=== PATIENT | male | born 1960 | race Hispanic/Latino ===

== ENCOUNTER → 2017-12-24 | Day surgery (SDC) | payer BC ==
[~2017-12-24] MED LIST: BIOTIN2500 MCG; CHLORDIAZEPOXIDE PO; CIPRO500 MG PO; DICYCLOMINE HCL 20 MG/2 ML VIAL IM SCH; FENTANYL CITRATE/PF 100MCG/2 ML INJ ONE; FIBERCON625 MG PO; GLUCOSAMINE1000 MG; LIDOCAINE HCL 2% LOCAL INJ 5 ML SDV VIAL INJ ONE; MIDAZOLAM HCL 2 MG/2 ML VIAL ONE; MULTIVITAMINS1 EAC8 PO; MYRBETRIQ50 MG; PRILOSEC10 M1; PROPOFOL IV EMULSION 10 MG/ML 20 ML VIAL IV ONE; TUMERIC; [UNRECOGNIZED DRUG - OTHER]; [UNRECOGNIZED DRUG - OTHER]
[2017-12-24 10:15] VITALS: BP 132/90
--- NOTE | 2017-12-24 12:03 | Operative Report ---
DATE OF PROCEDURE: December 24, 2017 GASTROINTESTINAL PROCEDURE NOTE PROCEDURE PERFORMED: Colonoscopy. PREOPERATIVE DIAGNOSIS: History of colon polyps. POSTOPERATIVE DIAGNOSES 1. History of colon polyps. 2. Colon polyps number 8 found and removed. 3. Diverticulosis. 4. Internal hemorrhoids. PREOP MEDICATIONS: Consisted of TIVA. PROCEDURE: Using the [employer] video colonoscope, this was inserted into the patient's rectum and advanced without difficulty to the level of the cecum. The colon was studied from that level back down to the rectum. There was a 4-mm-sized polyp in the ascending colon, which was removed with the hot biopsy forceps. There was another 4-mm-sized polyp in the descending colon, which was removed with the hot biopsy forceps. The sigmoid colon contained 4 polyps approximately 3 to 5 mm in size, and these were removed with the hot biopsy forceps. There was a 4-mm-sized polyp in the rectum, which was removed with the hot biopsy forceps. Scattered diverticula were seen in the sigmoid and colon but no evidence of a diverticulitis. Internal hemorrhoids were present. The colonoscope was withdrawn from the patient's rectum, and the procedure was ended. In conclusion, we had findings of colon polyps as mentioned above, diverticulosis and internal hemorrhoids. Job#: [id number] EV
== END | disposition home or self-care (01) ==
LOC: OR 07:04
PROVIDERS: ATTEND Internal Medicine Gastroenterology
DX: Z09 Encounter for follow-up examination after completed treatment for conditions other than malignant neoplasm (principal); K63.5 Polyp of colon; K62.1 Rectal polyp; K57.30 Diverticulosis of large intestine without perforation or abscess without bleeding; K58.9 Irritable bowel syndrome, unspecified; K64.8 Other hemorrhoids; K21.9 Gastro-esophageal reflux disease without esophagitis; G47.33 Obstructive sleep apnea (adult) (pediatric); E78.5 Hyperlipidemia, unspecified; E66.9 Obesity, unspecified; F17.210 Nicotine dependence, cigarettes, uncomplicated; Z01.810 Encounter for preprocedural cardiovascular examination; Z68.34 Body mass index [BMI] 34.0-34.9, adult; Z80.0 Family history of malignant neoplasm of digestive organs
CPT/HCPCS: 45384; 88305; 93005; J0500; J2001; J2250; J2704

== ENCOUNTER 2017-12-26 18:03 | Inpatient (IN) | payer BC ==
[~2017-12-26] VITALS: Ht 180.3 cm; Wt 103.7 kg
[~2017-12-26 18:03] MED LIST changes: -CIPRO500 MG PO; -DICYCLOMINE HCL 20 MG/2 ML VIAL IM SCH; -FENTANYL CITRATE/PF 100MCG/2 ML INJ ONE; -LIDOCAINE HCL 2% LOCAL INJ 5 ML SDV VIAL INJ ONE; -MIDAZOLAM HCL 2 MG/2 ML VIAL ONE; -PROPOFOL IV EMULSION 10 MG/ML 20 ML VIAL IV ONE
[2017-12-26] MEDS ORDERED: SODIUM CHLORIDE 0.9% 1000ML 1,000 ML IV STA (18:28)
[2017-12-26] MEDS ORDERED: DIATRIZOATE MEGL/DIATRIZOA SOD 30 ML BTL PO ONE (18:53)
[2017-12-26 19:08] LABS: BASOPHILS % 0.3 % (0.0-1.0); EOSINOPHILS # (AUTO) 0.3 (0.0-0.4); EOSINOPHILS % 2.4 % (0.0-6.0); HEMATOCRIT 46.4 % (38.2-49.6); HEMOGLOBIN 15.9 g/dL (14.0-18.0); LYMPHOCYTES # (AUTO) 2.3 (1.0-3.2); LYMPHOCYTES % 17.7 % (18.0-39.1); MEAN CORPUSCULAR HEMOGLOBIN 30.6 pg (28-32); MEAN CORPUSCULAR HGB CONC 34.3 g/dL (31-35); MEAN CORPUSCULAR VOLUME 89.4 fL (81-99); MONOCYTES # (AUTO) 1.6 (0.2-0.8); MONOCYTES % 12.1 % (4.4-11.3); NEUTROPHILS # (AUTO) 8.6 (2.1-6.9); NEUTROPHILS % 67.3 % (38.7-80.0); PLATELET COUNT 307 x10e3/uL (140-360); RED BLOOD COUNT 5.19 x10e6/uL (4.3-5.7); RED CELL DISTRIBUTION WIDTH 12.4 % (11.7-14.4)
[2017-12-26] MEDS ORDERED: ACETAMINOPHEN 1000 MG/100 ML IV ONE (19:15)
[2017-12-26] MEDS ORDERED: MORPHINE SULFATE INJ 4 MG/ML INJ IV ONE (19:15)
[2017-12-26] MEDS ORDERED: ONDANSETRON HCL INJ 2 MG/ML VIAL IV ONE (19:15)
[2017-12-26] MEDS ORDERED: PANTOPRAZOLE 40 MG 10ML VIAL IV ONE (19:30)
[2017-12-26 19:31] LABS: ALANINE AMINOTRANSFERASE 52 IU/L (0-55); ALBUMIN 4.1 g/dL (3.5-5.0); ALKALINE PHOSPHATASE 103 IU/L (40-150); ANION GAP 15.7 mmol/L (8-16); BLOOD UREA NITROGEN 11 mg/dL (7-26); BUN/CREATININE RATIO 9 (6-25); CALCIUM 9.8 mg/dL (8.4-10.2); CARBON DIOXIDE 29 mmol/L (22-29); CHLORIDE 96 mmol/L (98-107); CREATINE KINASE 89 IU/L (30-200); CREATININE, SERUM 1.19 mg/dL (0.72-1.25); EST GLOMERULAR FILTRATION RATE > 60 ML/MIN (60-); GLUCOSE 127 mg/dL (74-118); LIPASE 23 U/L (8-78); POTASSIUM 3.7 mmol/L (3.5-5.1); SODIUM 137 mmol/L (136-145)
--- NOTE | 2017-12-26 19:38 | Diagnostic Imaging Report ---
EXAM: ABDOMEN ACUTE SERIES W/PA CXR, DATE: 12/26/2017 6:30 PM INDICATION: Status post colonoscopy. Distended hypertympanic. COMPARISON: None FINDINGS: LINES/TUBES: None BOWEL PATTERN: Multiple distended loops of small bowel and colon. Small bowel measures up to approximately 6 cm in diameter. No free air under the hemidiaphragm on upright view. SOFT TISSUES: No abnormal calcifications. No mass effect. LUNG BASES: Grossly clear. BONES: No acute findings. IMPRESSION: Multiple distended loops of small and large bowel. Findings could be related to insufflation during colonoscopy with incompetent ileocecal valve if colonoscopy was performed recently. Ileus or developing small bowel obstruction are other considerations. Findings can be reevaluated at the time of reported pending CT. Signed by: DR. Beto Harris MD on 12/26/2017 7:35 PM
[2017-12-26 19:40] LABS: CLARITY,URINE CLEAR (CLEAR); COLOR,URINE YELLOW (YELLOW)
[2017-12-26 19:41] LABS: BILIRUBIN,URINE NEGATIVE (NEGATIVE); KETONES,URINE NEGATIVE (NEGATIVE); LEUKOCYTE ESTERASE ,URINE NEGATIVE (NEGATIVE); NITRITE,URINE NEGATIVE (NEGATIVE); PROTEIN,URINE DIPSTICK NEGATIVE (NEGATIVE); URINE UROBILINOGEN 0.2 mg/dL (0.2 - 1)
[2017-12-26 19:52] LABS: BACTERIA,URINE FEW /HPF; EPITHELIAL CELLS,URINE RARE /LPF; RBC,URINE 0-5 /HPF (0-5); WBC,URINE (MAN) 0-5 /HPF (0-5)
[2017-12-26] MEDS ORDERED: METRONIDAZOLE 500MG/NS 100ML 100 ML IV STA (20:34)
[2017-12-26] MEDS ORDERED: PIPER-TAZ 3.375 GM 50 ML IV STA (20:34)
[2017-12-26] MEDS ORDERED: SODIUM CHLORIDE 0.9% 50ML 50 ML ONE (20:51)
[2017-12-26] MEDS ORDERED: IOPAMIDOL 370 MG/ML 200 ML INFUS..BTL INJ ONE (20:51)
--- NOTE | 2017-12-26 21:15 | Diagnostic Imaging Report ---
EXAM: CT Abdomen and Pelvis WITH contrast INDICATION: Rule out small bowel obstruction ^r/o sbo ^[id number] ^2029 COMPARISON: None. TECHNIQUE: Abdomen and pelvis were scanned utilizing a multidetector helical scanner from the lung base to the pubic symphysis after administration of IV contrast. Coronal and sagittal reformations were obtained. Routine protocol was performed. Scan was performed when during portal venous phase. IV CONTRAST: 100 mL of Isovue-370 ORAL CONTRAST: Gastroview COMPLICATIONS: None RADIATION DOSE: Total DLP: 759.6 mGy*cm Estimated effective dose: (DLP x 0.015 x size factor) mSv CTDIvol has been reviewed. It is below the limits set by the Radiation Protocol Committee (RPC). Dose modulation, iterative reconstruction, and/or weight based adjustment of the mA/kV was utilized to reduce the radiation dose to as low as reasonably achievable. FINDINGS: LINES and TUBES: None. LOWER THORAX: Unremarkable HEPATOBILIARY: Hyperattenuating 3.1 cm cm lesion in segment (series 2 image 30). Diffuse hypoattenuation of the liver suggestive of steatosis. No biliary ductal dilation. GALLBLADDER: Cholecystectomy. SPLEEN: No splenomegaly. PANCREAS: No focal masses or ductal dilatation. ADRENALS: No adrenal nodules KIDNEYS/URETERS: Kidneys enhance symmetrically. No hydronephrosis. Right renal 1.3 cm cyst. No stones. GI TRACT: Multiple distended loops of small bowel with relatively collapsed distal small bowel without identifiable transition point. No pneumatosis or bowel hypoenhancement. Gas is present within the colon. Appendix is not clearly identified. There is however no fat stranding or adenopathy in the right lower quadrant to suggest appendicitis. PELVIC ORGANS/BLADDER: Unremarkable. LYMPH NODES: No lymphadenopathy. VESSELS: Unremarkable. PERITONEUM / RETROPERITONEUM: Small amount of free fluid in the pelvis. No free air. BONES: There are degenerative changes in the lumbar spine. SOFT TISSUES: Unremarkable. IMPRESSION: 1. Findings suggestive of partial small bowel obstruction with dilated proximal and mid small bowel loops with collapsed distal bowel loops. No transition point identified. No findings of bowel ischemia, pneumatosis, or free air. 2. Indeterminate right hepatic 3.1 cm lesion. Recommend further evaluation with MRI without and with contrast for further evaluation, preferably an outpatient basis when patient is clinically optimized and minimize motion. Signed by: DR. Beto Harris MD on 12/26/2017 9:12 PM
[2017-12-26] MEDS ORDERED: LIDOCAINE VISC 2% SOLN 15 ML UDC ONE (21:29)
[2017-12-26] MEDS ORDERED: BENZOCAINE/TETRACAINE/BUTAMBEN AERO SPRAY 56 GM CAN ONE (21:29)
[2017-12-26] MEDS ORDERED: BENZOCAINE/TETRACAINE/BUTAMBEN AERO SPRAY 56 GM CAN TOP ONE (21:30)
[2017-12-26] MEDS ORDERED: ONDANSETRON HCL INJ 2 MG/ML VIAL IV PRN (21:45)
[2017-12-26] MEDS ORDERED: HYDROMORPHONE 1MG/1ML INJ IV PRN (21:45)
--- OUTSIDE RECORDS SUMMARY | 2017-12-26 21:54 | XMS REPORT ---
Author [facility] Address Unknown Phone Unavailable Care Team Providers Care Fire Official Name Role Phone Logan MILLIGAN Unavailable Unavailable Problems This patient has no known problems. Allergies, Adverse Reactions, Alerts This patient has no known allergies or adverse reactions. Medications This patient has no known medications. 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 TECHNIQUE: Abdomen and pelvis were scanned utilizing a multidetector helical scanner from the lung base to the pubic symphysis after administration of IV contrast. Coronal and sagittal reformations were obtained. Routine protocol was performed. Scan was performed when during portal venous phase. IV CONTRAST: 100 mL of Isovue-370 ORAL CONTRAST: Gastroview COMPLICATIONS: None RADIATION DOSE: Total DLP: 759.6 mGy*cm Estimated effective dose: (DLP x 0.015 x size factor) mSv CTDIvol has been reviewed. It is below the limits set by the Radiation Protocol Committee (RPC). Dose modulation, iterative reconstruction, and/or weight based adjustment of the mA/kV was utilized to reduce the radiation dose to as low as reasonably achievable. FINDINGS: LINES and TUBES: None. LOWER THORAX: Unremarkable HEPATOBILIARY: Hyperattenuating 3.1 cm cm lesion in segment (series 2 image 30). Diffuse hypoattenuation of the liver suggestive of steatosis. No biliary ductal dilation. GALLBLADDER: Cholecystectomy. SPLEEN: No splenomegaly. PANCREAS: No focal masses or ductal dilatation. ADRENALS: No adrenal nodules KIDNEYS/URETERS: Kidneys enhance symmetrically. No hydronephrosis. Right renal 1.3 cm cyst. No stones. GI TRACT: Multiple distended loops of small bowel with relatively collapsed distal small bowel without identifiable transition point. No pneumatosis or bowel hypoenhancement . Gas is present within the colon. Appendix is not clearly identified. There is however no fat stranding or adenopathy in the right lower quadrant to suggest appendicitis. PELVIC ORGANS/BLADDER: Unremarkable. LYMPH NODES: No lymphadenopathy. VESSELS: Unremarkable. PERITONEUM / RETROPERITONEUM: Small amount of free fluid in the pelvis. No free air. BONES: There are degenerative changes in the lumbar spine. SOFT TISSUES: Unremarkable. IMPRESSION: 1. Findings suggestive of partial small bowel obstruction with dilated proximal and mid small bowel loops with collapsed distal bowel loops. No transition point identified. No findings of bowel ischemia, pneumatosis, or free air. 2. Indeterminate right hepatic 3.1 cm lesion. Recommend further evaluation with MRI without and with contrast for further evaluation, preferably an outpatient basis when patient is clinically optimized and minimize motion. Signed by: DR. Beto Graham MD on 12/26/2017 9:12 PM Dictated By: BETO GRAHAM MD 11 Transcribed By: ARIELLE on 12/26/172111 COPY TO: SHAUNA HANSEN NP ABDOMEN ACUTE SERIES W/PA CXR 2017-12-26 19:29:00 [place] [address] Patient Name: RHEA ANTHONY MR #: [id number] : 1960 Age/Sex: 57/M Req #: [id number] [facility] Physician: Ordered by: SAMANTHA MILLIGAN MD Report #: [id number] Location: ER Room/Bed: Procedure: [id number] DX/ABDOMEN ACUTE SERIES W/PA CXR Exam Date: Exam Time: REPORT STATUS: Signed EXAM: ABDOMEN ACUTE SERIES W/PA CXR, DATE: 12/26/2017 6:30 PM INDICATION: Status post colonoscopy. Distended hypertympanic. COMPARISON: None FINDINGS: LINES/TUBES: None BOWEL PATTERN: Multiple distended loops of small bowel and colon. Small bowel measures up to approximately 6 cm in diameter. No free air under the hemidiaphragm on upright view. SOFT TISSUES: No abnormal calcifications. No mass effect. LUNG BASES: Grossly clear. BONES: No acute findings. IMPRESSION: Multiple distended loops of small and large bowel. Findings could be related to insufflation during colonoscopy with incompetent ileocecal valve if colonoscopy was performed recently. Ileus or developing small bowel obstruction are other considerations. Findings can be reevaluated at the time of reported pending CT. Signed by: DR. Beto Graham MD on 12/26/2017 7:35 PM Dictated By: BETO GRAHAM MD 34 Transcribed By: ARIELLE on 12/26/171934 COPY TO: SAMANTHA MILLIGAN MD
[2017-12-26 22:22] VITALS: BP_SYST 134; BP_DIAS 81; BP_DIAS 87
[2017-12-26] MEDS: SODIUM CHLORIDE 0.9% 1000ML 1,000 ML IV SCH (23:48)
[2017-12-27] VITALS (8 sets, daily range): BP systolic 127–136; BP diastolic 76–85
[2017-12-27] MEDS ORDERED: METRONIDAZOLE 500MG/NS 100ML 100 ML IV SCH
[2017-12-27] MEDS: PANTOPRAZOL 40MG/SOD CHL 0.9% 50 ML IV SCH ×5 (00:41→20:16)
[2017-12-27] MEDS ORDERED: PIPER-TAZ 3.375 GM 50 ML IV SCH ×3 (03:00)
[2017-12-27] MEDS: METRONIDAZOLE 500MG/NS 100ML 100 ML IV SCH ×4 (03:41→20:16)
[2017-12-27 05:35] LABS: BASOPHILS % 0.3 % (0.0-1.0); EOSINOPHILS # (AUTO) 0.3 (0.0-0.4); EOSINOPHILS % 3.1 % (0.0-6.0); HEMATOCRIT 39.8 % (38.2-49.6); HEMOGLOBIN 13.6 g/dL (14.0-18.0); LYMPHOCYTES # (AUTO) 1.5 (1.0-3.2); LYMPHOCYTES % 16.1 % (18.0-39.1); MEAN CORPUSCULAR HEMOGLOBIN 30.6 pg (28-32); MEAN CORPUSCULAR HGB CONC 34.2 g/dL (31-35); MEAN CORPUSCULAR VOLUME 89.6 fL (81-99); MONOCYTES # (AUTO) 1.4 (0.2-0.8); MONOCYTES % 14.7 % (4.4-11.3); NEUTROPHILS # (AUTO) 6.2 (2.1-6.9); NEUTROPHILS % 65.6 % (38.7-80.0); PLATELET COUNT 221 x10e3/uL (140-360); RED BLOOD COUNT 4.44 x10e6/uL (4.3-5.7); RED CELL DISTRIBUTION WIDTH 12.3 % (11.7-14.4)
[2017-12-27] MEDS: SODIUM CHLORIDE 0.9% 1000ML 1,000 ML IV SCH ×3 (05:44→21:50)
[2017-12-27 05:57] LABS: ALANINE AMINOTRANSFERASE 47 IU/L (0-55); ALBUMIN 3.4 g/dL (3.5-5.0); ALBUMIN/GLOBULIN RATIO 1.1 (0.8-2.0); ALKALINE PHOSPHATASE 83 IU/L (40-150); ANION GAP 14.8 mmol/L (8-16); BLOOD UREA NITROGEN 10 mg/dL (7-26); BUN/CREATININE RATIO 9 (6-25); CARBON DIOXIDE 24 mmol/L (22-29); CHLORIDE 100 mmol/L (98-107); CREATININE, SERUM 1.09 mg/dL (0.72-1.25); EST GLOMERULAR FILTRATION RATE > 60 ML/MIN (60-); GLUCOSE 121 mg/dL (74-118); POTASSIUM 3.8 mmol/L (3.5-5.1); SODIUM 135 mmol/L (136-145)
--- NOTE | 2017-12-27 07:03 | Diagnostic Imaging Report ---
EXAM: ABDOMEN 2 VIEW DATE: 12/27/2017 8:00 AM INDICATION: Nasogastric tube placement COMPARISON: CT 12/26/2017, KUB 12/26/2017 FINDINGS: LINES/TUBES: Interval placement of nasogastric tube with tip and side port projecting over the gastric fundus. BOWEL PATTERN: Multiple dilated loops of small bowel with multiple air-fluid levels on upright view in keeping with small bowel obstruction. No apparent free air. SOFT TISSUES: No abnormal calcifications. No mass effect. Cholecystectomy clips project over the right upper quadrant. Contrast within the bladder. LUNG BASES: Not included BONES: No acute findings. IMPRESSION: Interval placement of nasogastric tube with tip projecting over the gastric fundus. Multiple dilated small bowel loops in keeping with small bowel obstruction. Signed by: DR. Beto Harris MD on 12/27/2017 7:00 AM
[2017-12-27] MEDS: PIPER-TAZ 3.375 GM 50 ML IV SCH ×3 (11:00→23:13)
[2017-12-27] MEDS ORDERED: ACETAMINOPHEN 1000 MG/100 ML IV PRN (12:00)
[2017-12-27] MEDS ORDERED: KETOROLAC TROMETHAMINE 30 MG/ML VIAL IV PRN (12:00)
[2017-12-27] MEDS ORDERED: PROMETHAZINE HCL (IM) 25 MG/ML VIAL IV PRN (12:00)
--- NOTE | 2017-12-27 12:12 | Diagnostic Imaging Report ---
EXAM: Abdomen 1 View INDICATION: ^NGT VERIFICATION ^20171227 ^1110 ^Y COMPARISON: Abdominal x-ray of the same date FINDINGS: See impression. IMPRESSION: Dedicated x-ray to confirm nasogastric tube placement. Nasogastric tube is visualized, with tip and side-port coiled in gastric fundus/cardia, unchanged in position when compared to prior x-ray. Signed by: Dr. Prabhu Stephens MD on 12/27/2017 12:08 PM
[2017-12-27] MEDS ORDERED: CHLORASEPTIC SPRAY 177 ML BTL MM PRN (12:45)
[2017-12-27] MEDS: DIPHENHYDRAMINE HCL INJ 50 MG/ML VIAL IV PRN (21:41)
[2017-12-28] VITALS: BP 127/80
[2017-12-28] MEDS: PANTOPRAZOL 40MG/SOD CHL 0.9% 50 ML IV SCH ×5 (01:10→22:01)
[2017-12-28] MEDS: METRONIDAZOLE 500MG/NS 100ML 100 ML IV SCH ×4 (03:27→22:00)
[2017-12-28 04:00] VITALS: BP 123/73
[2017-12-28] MEDS: SODIUM CHLORIDE 0.9% 1000ML 1,000 ML IV SCH ×3 (05:34→20:39)
[2017-12-28] MEDS: PIPER-TAZ 3.375 GM 50 ML IV SCH ×3 (05:34→18:07)
[2017-12-28 05:53] LABS: BASOPHILS % 0.4 % (0.0-1.0); EOSINOPHILS # (AUTO) 0.4 (0.0-0.4); EOSINOPHILS % 4.2 % (0.0-6.0); HEMATOCRIT 36.8 % (38.2-49.6); HEMOGLOBIN 12.4 g/dL (14.0-18.0); LYMPHOCYTES # (AUTO) 1.5 (1.0-3.2); LYMPHOCYTES % 18.1 % (18.0-39.1); MEAN CORPUSCULAR HEMOGLOBIN 30.7 pg (28-32); MEAN CORPUSCULAR HGB CONC 33.7 g/dL (31-35); MEAN CORPUSCULAR VOLUME 91.1 fL (81-99); MONOCYTES # (AUTO) 1.1 (0.2-0.8); MONOCYTES % 13.5 % (4.4-11.3); NEUTROPHILS # (AUTO) 5.3 (2.1-6.9); NEUTROPHILS % 63.6 % (38.7-80.0); PLATELET COUNT 199 x10e3/uL (140-360); RED BLOOD COUNT 4.04 x10e6/uL (4.3-5.7); RED CELL DISTRIBUTION WIDTH 12.3 % (11.7-14.4)
[2017-12-28 06:17] LABS: ANION GAP 11.7 mmol/L (8-16); BLOOD UREA NITROGEN 14 mg/dL (7-26); BUN/CREATININE RATIO 12 (6-25); CALCIUM 8.2 mg/dL (8.4-10.2); CARBON DIOXIDE 24 mmol/L (22-29); CHLORIDE 105 mmol/L (98-107); CREATININE, SERUM 1.16 mg/dL (0.72-1.25); EST GLOMERULAR FILTRATION RATE > 60 ML/MIN (60-); GLUCOSE 97 mg/dL (74-118); POTASSIUM 3.7 mmol/L (3.5-5.1); SODIUM 137 mmol/L (136-145)
--- NOTE | 2017-12-28 08:40 | Diagnostic Imaging Report ---
PROCEDURE:ABDOMEN ACUTE SERIES (FOUR VIEWS) COMPARISON:KUB 12/26/[address] Abdomen/Pelvis 12/26/17. INDICATIONS:SMALL BOWEL OBSTRUCTION FINDINGS: Enteric tube terminates in the gastric fundus. Persistent dilated small bowel loops with relative paucity of air in the colon. Degree of small bowel distension is similar to radiographs on 12/26/17. No evidence of free intraperitoneal air. Status post cholecystectomy. No acute bony findings. CONCLUSION: Persistent findings of partial small bowel obstruction. No evidence of free intraperitoneal air. Dictated by: TIMUR PAYNE M.D. on 12/28/2017 at 8:49 Electronically approved by: TIMUR PAYNE M.D. on 12/28/2017 at 8:49
[2017-12-28 08:56] VITALS: BP 119/72
[2017-12-28 12:20] VITALS: BP 132/72
[2017-12-28 15:52] VITALS: BP 133/77
[2017-12-28] MEDS ORDERED: HYDROMORPHONE 2MG/ML 2 MG/ML ML IV PRN (18:30)
[2017-12-28 20:10] VITALS: BP 138/77
[2017-12-28] MEDS: DIPHENHYDRAMINE HCL INJ 50 MG/ML VIAL IV PRN (22:00)
[2017-12-28] MEDS: BISACODYL 10 MG SUPP PR SCH (22:02)
[2017-12-29] VITALS (7 sets, daily range): BP systolic 127–156; BP diastolic 71–83
[2017-12-29] MEDS: PANTOPRAZOL 40MG/SOD CHL 0.9% 50 ML IV SCH ×5 (03:00→20:47)
[2017-12-29] MEDS: METRONIDAZOLE 500MG/NS 100ML 100 ML IV SCH ×4 (03:30→20:47)
[2017-12-29] MEDS: PIPER-TAZ 3.375 GM 50 ML IV SCH ×5 (05:30→22:40)
[2017-12-29 06:29] LABS: BASOPHILS % 0.5 % (0.0-1.0); EOSINOPHILS # (AUTO) 0.3 (0.0-0.4); EOSINOPHILS % 3.8 % (0.0-6.0); HEMATOCRIT 34.9 % (38.2-49.6); HEMOGLOBIN 11.9 g/dL (14.0-18.0); LYMPHOCYTES # (AUTO) 1.6 (1.0-3.2); LYMPHOCYTES % 19.5 % (18.0-39.1); MEAN CORPUSCULAR HEMOGLOBIN 30.7 pg (28-32); MEAN CORPUSCULAR HGB CONC 34.1 g/dL (31-35); MEAN CORPUSCULAR VOLUME 89.9 fL (81-99); MONOCYTES # (AUTO) 0.9 (0.2-0.8); MONOCYTES % 11.3 % (4.4-11.3); NEUTROPHILS # (AUTO) 5.4 (2.1-6.9); NEUTROPHILS % 64.7 % (38.7-80.0); PLATELET COUNT 219 x10e3/uL (140-360); RED BLOOD COUNT 3.88 x10e6/uL (4.3-5.7); RED CELL DISTRIBUTION WIDTH 12.2 % (11.7-14.4)
[2017-12-29 06:34] LABS: ANION GAP 14.5 mmol/L (8-16); BLOOD UREA NITROGEN 13 mg/dL (7-26); BUN/CREATININE RATIO 14 (6-25); CALCIUM 7.5 mg/dL (8.4-10.2); CARBON DIOXIDE 21 mmol/L (22-29); CHLORIDE 104 mmol/L (98-107); CREATININE, SERUM 0.91 mg/dL (0.72-1.25); EST GLOMERULAR FILTRATION RATE > 60 ML/MIN (60-); GLUCOSE 91 mg/dL (74-118); POTASSIUM 3.5 mmol/L (3.5-5.1); SODIUM 136 mmol/L (136-145)
[2017-12-29] MEDS: SODIUM CHLORIDE 0.9% 1000ML 1,000 ML IV SCH ×2 (08:12→15:38)
[2017-12-29] MEDS: BISACODYL 10 MG SUPP PR SCH (09:17)
--- NOTE | 2017-12-29 12:45 | Diagnostic Imaging Report ---
PROCEDURE:ABDOMEN ACUTE SERIES W/PA CXR COMPARISON:None. INDICATIONS:SMALL BOWEL OBSTRUCTION FINDINGS: CHEST: Linear opacities in the left lower lung likely reflects subsegmental atelectasis. Enteric tube under the left hemidiaphragm, with tip projecting in the proximal fundus and proximal side-port near the GE junction. Further advancement is recommended. No consolidation. Cardiomediastinal silhouette is unremarkable. BOWEL PATTERN: Persistent dilation of multiple small bowel loops in the central portion of the abdomen, however, these are decreased in caliber when compared to prior exam, measuring approximately 5 cm. SOFT TISSUES: Unremarkable. BONES: Unremarkable CONCLUSION: 1. No acute thoracic abnormality. Enteric tube has tip projecting in the proximal fundus and proximal side-port near the GE junction. Further advancement is recommended. 2. Persistent dilation of multiple small bowel loops in the central portion of the abdomen, consistent with small bowel obstruction, however, decreased in caliber when compared to prior exam. Junoir Stoner M.D. Dictated by: Junior Stoner M.D. on 12/29/2017 at 12:54 Electronically approved by: Junior Stoner M.D. on 12/29/2017 at 12:54
[2017-12-29] MEDS ORDERED: BISACODYL 10 MG SUPP PR NR (21:15)
[2017-12-30] VITALS (7 sets, daily range): BP systolic 125–161; BP diastolic 72–87
[2017-12-30] MEDS: SODIUM CHLORIDE 0.9% 1000ML 1,000 ML IV SCH ×3 (00:43→20:04)
[2017-12-30] MEDS: PANTOPRAZOL 40MG/SOD CHL 0.9% 50 ML IV SCH ×5 (02:48→22:02)
[2017-12-30] MEDS: METRONIDAZOLE 500MG/NS 100ML 100 ML IV SCH ×4 (02:48→21:00)
[2017-12-30] MEDS: PIPER-TAZ 3.375 GM 50 ML IV SCH ×4 (04:40→22:02)
[2017-12-30 05:59] LABS: BASOPHILS % 0.5 % (0.0-1.0); EOSINOPHILS # (AUTO) 0.4 (0.0-0.4); EOSINOPHILS % 4.8 % (0.0-6.0); HEMOGLOBIN 11.8 g/dL (14.0-18.0); LYMPHOCYTES # (AUTO) 1.6 (1.0-3.2); LYMPHOCYTES % 20.6 % (18.0-39.1); MEAN CORPUSCULAR HEMOGLOBIN 30.8 pg (28-32); MEAN CORPUSCULAR HGB CONC 34.7 g/dL (31-35); MEAN CORPUSCULAR VOLUME 88.8 fL (81-99); MONOCYTES # (AUTO) 0.7 (0.2-0.8); MONOCYTES % 9.3 % (4.4-11.3); NEUTROPHILS # (AUTO) 5.1 (2.1-6.9); NEUTROPHILS % 64.4 % (38.7-80.0); PLATELET COUNT 204 x10e3/uL (140-360); RED BLOOD COUNT 3.83 x10e6/uL (4.3-5.7); RED CELL DISTRIBUTION WIDTH 12.1 % (11.7-14.4)
[2017-12-30 06:57] LABS: ANION GAP 14.6 mmol/L (8-16); BLOOD UREA NITROGEN 10 mg/dL (7-26); BUN/CREATININE RATIO 12 (6-25); CALCIUM 7.5 mg/dL (8.4-10.2); CARBON DIOXIDE 20 mmol/L (22-29); CHLORIDE 105 mmol/L (98-107); CREATININE, SERUM 0.82 mg/dL (0.72-1.25); EST GLOMERULAR FILTRATION RATE > 60 ML/MIN (60-); GLUCOSE 90 mg/dL (74-118); POTASSIUM 3.6 mmol/L (3.5-5.1); SODIUM 136 mmol/L (136-145)
[2017-12-31] VITALS: BP 125/74
[2017-12-31] MEDS: METRONIDAZOLE 500MG/NS 100ML 100 ML IV SCH ×3 (03:00→17:04)
[2017-12-31] MEDS: PANTOPRAZOL 40MG/SOD CHL 0.9% 50 ML IV SCH ×2 (03:17→08:45)
[2017-12-31 04:00] VITALS: BP 132/80
[2017-12-31] MEDS: SODIUM CHLORIDE 0.9% 1000ML 1,000 ML IV SCH (08:45)
[2017-12-31 08:58] VITALS: BP 127/78
[2017-12-31 09:14] VITALS: BP 127/78
[2017-12-31] MEDS: PIPER-TAZ 3.375 GM 50 ML IV SCH ×2 (12:20→17:00)
[2017-12-31 12:48] VITALS: BP 130/89
[2017-12-31] MEDS ORDERED: CIPRO500 MG PO (18:39)
[2018-01-01] MEDS ORDERED: PANTOPRAZOLE 40 MG 10ML VIAL IV SCH (09:00)
== END 2017-12-31 18:50 | disposition home or self-care (01) | DRG 390 ==
LOC: ER 18:03 → ERHOLD 21:50 → MED/SURG 22:24
PROVIDERS: ADMIT Surgery; ATTEND Surgery
DX: K56.600 Partial intestinal obstruction, unspecified as to cause (principal); R16.0 Hepatomegaly, not elsewhere classified; K76.0 Fatty (change of) liver, not elsewhere classified; G47.30 Sleep apnea, unspecified
CPT/HCPCS: 36415; 74018; 74019; 74022; 74177; 80048; 80053; 81001; 82105; 82550; 82553; 83605; 83690; 84484; 85025; 87086; 96365; 99284; J1200; J2270; J2405; J2543; J7030; Q9967

== ENCOUNTER → 2018-03-15 | Outpatient (CLI) | payer BC ==
[~2018-03-15] MED LIST changes: +CIPRO500 MG PO
--- NOTE | 2018-03-15 09:44 | Diagnostic Imaging Report ---
EXAM: DOUBLE CONTRAST UPPER GI SERIES INDICATION: Gastroesophageal reflux COMPARISON: CT abdomen and pelvis with contrast 12/26/2017 FINDINGS: ESOPHAGUS: Motility: Within normal limits. Mucosa: Unremarkable. Distensibility: Normal. GASTROESOPHAGEAL JUNCTION: No evidence of hiatal hernia. GASTROESOPHAGEAL REFLUX: Mild reflux into the lower third of the esophagus. STOMACH: Normally distensible and demonstrates normal contours and mucosal pattern. DUODENUM: Bulb and sweep are normal. Duodenal-jejunal junction is in the normal expected position. Fluoroscopy Time: 0.9 minutes Air Kerma: 62.7 mGy IMPRESSION: Mild gastroesophageal reflux. Otherwise unremarkable biphasic upper GI examination. Signed by: Dr. Ángel John M.D. on 03/15/2018 9:41 AM
== END ==
LOC: DX 08:23
PROVIDERS: ATTEND Surgery
DX: K21.9 Gastro-esophageal reflux disease without esophagitis (principal)
CPT/HCPCS: 74246